=== PATIENT | male | born 1965 | race Caucasian/White ===

== ENCOUNTER 2020-10-10 06:52 | Day surgery (SDC) | payer BC ==
[2020-10-10] MEDS ORDERED: Ketorolac 30 MG/ML SDV IVPUSH ONE (06:53)
[2020-10-10] MEDS ORDERED: Rocuronium 50 MG/5 ML Vial IV ONE (06:53)
[2020-10-10] MEDS ORDERED: fentaNYL 100 MCG/2 ML SDV IV ONE (06:53)
[2020-10-10] MEDS ORDERED: Propofol 200 MG/20 ML SDV IV ONE (06:53)
[2020-10-10] MEDS ORDERED: ePHEDrine 50 MG/ML SDV IV ONE (06:53)
[2020-10-10] MEDS ORDERED: Lactated Ringers 1,000 ML IV ONE (06:53)
[2020-10-10] MEDS ORDERED: Midazolam 1 MG/ML 2 ML SDV IV ONE (06:53)
[2020-10-10] MEDS ORDERED: Ondansetron 4 MG/2 ML SDV IVPUSH ONE (06:53)
[2020-10-10] MEDS ORDERED: Sodium Chloride 0.9% 10 ML Syringe FLUSH PRN (07:00)
[2020-10-10] MEDS ORDERED: Lactated Ringers 1,000 ML IV SCH (07:00)
[2020-10-10] MEDS ORDERED: ceFAZolin 2 GM in Premix Bag 1 BAG IV ONE (08:45)
[2020-10-10] MEDS ORDERED: Bupivacaine 0.5% 30 ML SDV INJECT ONE (08:55)
[2020-10-10] MEDS ORDERED: Lidocaine 1% with EPINEPHrine 1:100,000 20 ML MDV INJECT ONE (08:55)
--- NOTE | 2020-10-10 09:56 | PCM.OPNOTE ---
- General Post-Op/Procedure Note Date of Surgery/Procedure: 10/10/20 Operative Procedure(s): rih repair with mesh Findings: indirect hernia without obstruction or gangrene repaired with Phasix large plug Pre Op Diagnosis: rih without obstruction or gangrene Post-Op Diagnosis: Same Anesthesia Technique: General LMA, Local (8 ml 1 5 lido with epi/0.5% buvipicaine) Primary Surgeon: Ari Lincoln Anesthesia Provider: Benton Cox Pathology: none Fluid Replacement, Intraop: 1,400 Complications: None Condition: Good Free Text/Narrative:: see dictation # [id number]
--- NOTE | 2020-10-10 16:27 | OR ---
DATE OF OPERATION: 10/10/2020 SURGEON: Ari Lincoln MD PROCEDURE PERFORMED: Right inguinal hernia repair with mesh. PREOPERATIVE DIAGNOSIS: Right inguinal hernia without obstruction or gangrene. POSTOPERATIVE DIAGNOSIS: Right inguinal hernia without obstruction or gangrene. INDICATIONS FOR PROCEDURE: This is a 54-year-old white male who is referred with a symptomatic hernia located on the right side that was easily reducible. He was offered and accepted repair. INTRAOPERATIVE FINDINGS: An indirect hernia was noted with a small cord lipoma. This was repaired with a Phasix plug and patch, size large, lot number [id number], reference #[id number] with an expiration date of 10/28/2021. A total of 8 mL of 1:1 mixture of 1% lidocaine with epinephrine, 0.5% bupivacaine was used, and the mesh was also fixed with SorbaFix tacks as well. DESCRIPTION OF PROCEDURE: After an excellent LMA anesthetic was administered, the patient was prepped and draped in usual sterile manner. Our local was used to infiltrate the planned incision site which involved the line intercepted the midpoint of the inguinal ligament between the symphysis pubis and the anterior- superior iliac spine. After infiltrating this as well as the subcu fat, a skin wheal was raised approximately 1 cm medial to the anterior-superior iliac spine and a deep intramuscular injection was carried out to infiltrate the ilioinguinal and genitofemoral nerves. A 5-cm incision was then created using a #15 scalpel blade. The underlying subcu fat was divided using electrocautery. Superficial inferior epigastric vessels were clamped, divided, and tied with 2-0 Vicryl ties. After exposing the internal oblique, more local was injected underneath the aponeurosis. A kym was made in the aponeurosis and carried out through the external ring. The ilioinguinal nerve was identified and carefully dissected free off the operative field. The cord was mobilized and controlled with a 1/4-inch [place] drain and a Weitlaner retractor was placed to retract the elevated leaf of the aponeurosis. This cord was then skeletonized. A small indirect hernia sac was identified. This was dissected free. On the sidewall of the hernia sac, there was also some very well adhered preperitoneal fat. A small cord lipoma was also dissected free. This was clamped, divided, and tied with a 2-0 Vicryl tie. Specimen was not submitted for pathologic examination as it was obviously fat. A small rent was made in the hernia sac. Therefore, this was twisted and a 3-0 Vicryl suture ligature was used to close the defect after twisting the sac a little bit. The hernia sac was reduced. A large plug was then inserted into the patient's indirect ring. The plug was then tacked circumferentially around with interrupted 2-0 Vicryl. The overlay patch was then laid on the floor of the inguinal canal. A vertical keyhole was cut to shape and wrapped around the external ring. Having completed this, the inferior edge of the mesh was tacked to the inferior edge of the inguinal ligament with 2- 0 Vicryl, and the keyhole was also closed with 2-0 Vicryl. It should be noted that we were able to preserve the ilioinguinal nerve by imbricating surrounding tissue around this to protect it from being adherent to the mesh. SorbaFix was also used to tack the mesh to the floor of the inguinal canal as well. Area was irrigated. The aponeurosis was closed with a running 3-0 Vicryl. The Zee's fascia was reapproximated with 3-0 Vicryl as well. Skin was then closed with a running 4-0 Vicryl. Steri-Strips were applied. Needle, sponge, and instrument counts were reported as correct. The patient tolerated the procedure well, was taken to recovery in good condition. /[id number] /MODL
== END 2020-10-10 12:10 | disposition home or self-care (01) ==
LOC: FB.SDS 06:52
PROVIDERS: ATTEND Surgery
DX: K40.90 Unilateral inguinal hernia, without obstruction or gangrene, not specified as recurrent (principal); D17.6 Benign lipomatous neoplasm of spermatic cord; Z01.812 Encounter for preprocedural laboratory examination; Z20.822 Contact with and (suspected) exposure to COVID-19; Z79.899 Other long term (current) drug therapy; Z98.890 Other specified postprocedural states
CPT/HCPCS: 00830-QZ; 94150; C1713; C1781; J0690; J1885; J2250; J2405; J2704; J3010; J3490; J7120; U0002

== ENCOUNTER 2023-05-09 20:35 | Emergency (ER) | payer BC ==
[2023-05-09] MEDS ORDERED: Cephalexin 500 MG Cap PO ONE (20:36)
== END 2023-05-09 21:30 | disposition home or self-care (01) ==
LOC: FB.ED 20:35
DX: L03.011 Cellulitis of right finger (principal)
CPT/HCPCS: 99283; A9270

== ENCOUNTER 2023-12-09 08:27 | Day surgery (SDC) | payer BC ==
[2023-12-09] MEDS ORDERED: Propofol 200 MG/20 ML SDV IV ONE (08:28)
[2023-12-09] MEDS ORDERED: Lidocaine 2% 100 MG/5 ML Syringe IVPUSH ONE (08:28)
[2023-12-09] MEDS ORDERED: Sodium Chloride 0.9% 10 ML Syringe FLUSH PRN (08:30)
[2023-12-09] MEDS: Lactated Ringers 1,000 ML IV SCH (09:50)
[2023-12-09] MEDS: Simethicone Drops 40 MG/0.6 ML 30 ML Bottle PO ONE (10:06)
== END 2023-12-09 11:35 | disposition home or self-care (01) ==
LOC: FB.SDS 08:27
PROVIDERS: ATTEND Surgery
DX: Z12.11 Encounter for screening for malignant neoplasm of colon (principal); D12.6 Benign neoplasm of colon, unspecified; K63.5 Polyp of colon; Z80.0 Family history of malignant neoplasm of digestive organs
CPT/HCPCS: 00811; 45380; 45381; 45385; 88305; A9270; J2704; J7120